=== PATIENT | male | born 1985 | race African-American/Black ===

== ENCOUNTER 2019-02-04 14:08 | Emergency (ER) | payer SELFPAY ==
--- NOTE | 2019-02-04 15:43 | EDM.PDOC ---
ED HPI GENERAL MEDICAL PROBLEM - General Chief Complaint: General Stated Complaint: FLU LIKE SYMPTOMS Time Seen by Provider: 02/04/19 15:20 Source of Information: Reports: Patient History Limitations: Reports: No Limitations - History of Present Illness INITIAL COMMENTS - FREE TEXT/NARRATIVE: 33 yo black smoker presents with not feeling well for over a month. Has not been to the clinic. His mother mentioned to him that he might have carbon monoxide poisoning because he occasionally smells like smoke. Rather than have his furnace tested he came to the ER today. Onset: Gradual, Unknown/Unsure Duration: Week(s): Location: Reports: Generalized Quality: Reports: Other (no pain) Severity: Mild Improves with: Reports: Other (none) Worsens with: Reports: Other (unknown) Context: Reports: Other (see HPI) Associated Symptoms: Reports: Headaches (mild at times), Malaise. Denies: Fever /Chills, Shortness of Breath Treatments [employer]: Reports: Other (see below) (none) - Related Data Allergies Allergy/AdvReac Type Severity Reaction Status Date / Time No Known Allergies Allergy Verified 02/04/19 15:01 Home Meds: Home Meds Cannabidiol (Cbd) Extract [CBD Oil] 02/04/19 [History] Past Medical History - Past Health History Medical/Surgical History: Denies Medical/Surgical History Social & Family History - Tobacco Use Smoking Status *Q: Current Some Day Smoker Years of Tobacco use: 10 Packs/Tins Daily: 0.1 ED ROS GENERAL - Review of Systems Review Of Systems: See Below Constitutional: Reports: Malaise HEENT: Reports: No Symptoms Respiratory: Reports: No Symptoms Cardiovascular: Reports: No Symptoms Endocrine: Reports: No Symptoms GI/Abdominal: Reports: Nausea (mild at times) : Reports: No Symptoms Musculoskeletal: Reports: No Symptoms Skin: Reports: No Symptoms Neurological: Reports: Headache (mild at times) ED EXAM, GENERAL - Physical Exam Exam: See Below Exam Limited By: No Limitations General Appearance: Alert, WD/WN, No Apparent Distress Eye Exam: Bilateral Eye: Normal Inspection Ears: Normal External Exam, Normal Canal, Hearing Grossly Normal, Normal TMs Ear Exam: Bilateral Ear: Auricle Normal, Canal Normal, TM normal Nose: Normal Inspection, No Blood Throat/Mouth: Normal Inspection, Normal Lips, Normal Oropharynx, Normal Voice, No Airway Compromise Head: Atraumatic, Normocephalic Neck: Normal Inspection Respiratory/Chest: No Respiratory Distress, Lungs Clear, Normal Breath Sounds, No Accessory Muscle Use Cardiovascular: Regular Rate, Rhythm, No Edema GI/Abdominal: Normal Bowel Sounds, Soft, Non-Tender, No Distention Back Exam: Normal Inspection. No: CVA Tenderness (R), CVA Tenderness (L) Extremities: Normal Inspection, Normal Range of Motion, Non-Tender, No Pedal Edema Neurological: Alert, Oriented, CN II-XII Intact, Normal Cognition, No Motor/ Sensory Deficits Psychiatric: Normal Affect, Normal Mood Skin Exam: Warm, Dry, Intact, Normal Color, No Rash Course - Vital Signs Last Recorded V/S: Last Vital Signs Temp 36.2 C 02/04/19 15:11 Pulse 82 02/04/19 15:11 Resp 18 02/04/19 15:11 BP 110/57 L 02/04/19 15:11 Pulse Ox 98 02/04/19 15:11 - Orders/Labs/Meds Labs: Laboratory Tests 02/04/19 Range/Units 15:04 ABG Carboxyhemoglobin 2.9 H (0.0-1.6) % Departure - Departure Time of Disposition: 15:42 Disposition: Home, Self-Care 01 Condition: Good Clinical Impression: Exposure to carbon monoxide - Discharge Information *PRESCRIPTION DRUG MONITORING PROGRAM REVIEWED*: No *COPY OF PRESCRIPTION DRUG MONITORING REPORT IN PATIENT REGINA: No Referrals: PCP,None [Primary Care Provider] - Additional Instructions: No smoking. Have your furnace checked before spending another night in the home. Get established for further testing with a family doctor.
== END 2019-02-04 16:15 | disposition home or self-care (01) ==
LOC: JP.ED 14:08
DX: T58.91XA Toxic effect of carbon monoxide from unspecified source, accidental (unintentional), initial encounter (principal); R51 Headache; F17.210 Nicotine dependence, cigarettes, uncomplicated
CPT/HCPCS: 82375; 99282; 99284